=== PATIENT | female | born 1995 | race Caucasian/White ===

== ENCOUNTER 2019-02-03 13:20 | Inpatient (IN) | payer MEDICAID ==
[~2019-02-03] VITALS: Ht 154.9 cm; Wt 73.7 kg
[2019-02-03 13:51] VITALS: Ht 154.9 cm; Wt 73.7 kg
[2019-02-03 13:52] VITALS: BP 121/90; PULSE 69; RESP 18
[2019-02-03] MEDS ORDERED: LACTATED RINGER'S 1,000 ML IV SCH (13:53)
[2019-02-03] MEDS ORDERED: LIDOCAINE 1% (MPF) 30 ML INJ INJ PRN (14:00)
[2019-02-03] MEDS ORDERED: METHYLERGONOVINE 0.2 MG INJ IM PRN ×2 (14:00→23:30)
[2019-02-03] MEDS ORDERED: OXYTOCIN 30 UNITS/LR 500 ML IV SCH ×3 (14:00)
[2019-02-03] MEDS ORDERED: MISOPROSTOL 200 MCG TAB PR PRN ×2 (14:00→23:30)
[2019-02-03] MEDS ORDERED: BUTORPHANOL 2 MG INJ IV PRN (14:00)
[2019-02-03] MEDS ORDERED: OXYCODONE/ASPIRIN (4.88/325) TAB PO PRN ×3 (14:00→23:30)
[2019-02-03] MEDS ORDERED: CARBOPROST 250 MCG INJ IM PRN ×2 (14:00→23:30)
[2019-02-03] MEDS ORDERED: OXYTOCIN 30 UNITS/LR 500 ML IV PRN ×2 (14:00→23:30)
[2019-02-03] MEDS ORDERED: IBUPROFEN 600 MG TAB PO PRN (14:00)
[2019-02-03] MEDS ORDERED: MINERAL OIL LIGHT 10 ML VIAL TOP STA (19:51)
--- NOTE | 2019-02-03 22:24 | LDN ---
Date/Time of Note Date/Time of Note DATE: 02/03/19 TIME: 22:18 Delivery Summary 37w4d Weeks of Gestation vaccum assisted vaginal delivery due to profound deceleration down to 50 's at the end of second stage with MLEwith very brief use of [id number] x1 Assisted Vaginal Delivery: Vacuum Placenta Delivered: Spontaneously, Intact & Complete (marginal abruptio , sent to pathology) Meconium: none Episiotomy: Yes Indication for episiotomy profound deceleration ,vaccum used Perineal laceration: 0 Laceration repair: 00ch gut Anesthesia type: Local Estimated blood loss: 200 Sponge & Needle done & correct: Yes All needle counts correct: Yes Any foreign bodies felt in the: No Delivery Information Sex Sex: male Apgars 1 Minute: 8 5 Minute: 9 Suctioning Nose & mouth suctioned at don: Yes Delee suction performed: Yes Umbilical Cord Umbilical cord with: 3 Vessels Cord presentations: no nuchal cord Cord Blood was obtained: Yes Mother & Baby Disposition Disposition Mom & Baby to Maternity; Good: Yes Mom transferred to: Other Baby to NICU: No () BRAXTON DEJESUS MD February 03, 2019 22:24
[2019-02-03 22:45] VITALS: BP 131/69; PULSE 64; RESP 18
--- NOTE | 2019-02-03 23:06 | HP ---
Date/Time of Note Date/Time of Note DATE: 02/03/19 TIME: 22:55 OB - History Hx of Present Free Text/Dictation 23y.o at 37w4d with UC's for 10hrs prior to triage with no hx of leaking fluid. Initial VE 2-3/100/-2 CAT I tracing GBS neg admitted for expected management Chief Complaint: uc's Estimated Due Date: February 20, 2019 : 1 Para: 0 Spontaneous : 0 Therapeutic : 0 Care: Other Ultrasounds: Normal mid trimester US, Other Obstetrical Complications: None Medical Complications: None Past Family/Social History * Past Medical, Surgical, Family and Obstetric Histories reviewed from chart. Blood Type: O+ Rubella: immune RPR/VDRL: Negative GBS Status: Negative HBsAG: Negative OB Admission Exam Vital Signs Vital Signs Vital Signs Date Temp Pulse Resp B/P (MAP) Pulse Ox O2 O2 Flow FiO2 Time Delivery Rate 02/03/19 98.2 69 18 121/90 13:52 (100) Physical Exam HEENT: WNL Heart: Rhythm Normal Lungs: Clear, Equal Abdomen: WNL Extremities: Normal Reflexes: Normal Cervical Dilatation: other (2-3) Effacement: 100% Station: -2 Membranes: Intact Amniotic Fluid: Unevaluable Heart Rate: 140's Accelerations: Accelerations Present Decelerations: No Decelerations Varibility: Moderate Contractions on Admission: < 5 Minutes Apart Intensity: Moderate Last 72 hours Lab Results CBC & BMP 02/03/19 14:29 OB Assessment/Plan Reason for admission: active labor Other Assessment: IUP 37w4d Plan: Expectant Management BRAXTON DEJESUS MD February 03, 2019 23:06
[2019-02-03] MEDS ORDERED: LANOLIN HPA 1 PKT TOP PRN (23:30)
[2019-02-03] MEDS ORDERED: ZOLPIDEM 5 MG TAB PO PRN (23:30)
[2019-02-03] MEDS ORDERED: BENZOCAINE 20% 56 ML SPRAY TOP PRN (23:30)
[2019-02-03] MEDS ORDERED: WITCH HAZEL/GLYCERIN PAD PR PRN (23:30)
[2019-02-04] MEDS: IBUPROFEN 600 MG TAB PO SCH ×5 (00:41→23:39)
[2019-02-04 04:00] VITALS: BP 121/67; PULSE 69; RESP 20
[2019-02-04] MEDS: SENNA/DOCUSATE NA (8.6MG/50MG) TAB PO SCH ×2 (09:05→20:48)
[2019-02-04 09:45] VITALS: BP 93/50; PULSE 80; RESP 15
[2019-02-04 13:00] VITALS: BP 110/65; PULSE 83; RESP 16
[2019-02-04 16:35] VITALS: BP 91/48; PULSE 67; RESP 16
[2019-02-04 20:35] VITALS: BP 102/54; PULSE 87; RESP 18
--- NOTE | 2019-02-04 23:20 | PN ---
Date/Time of Note Date/Time of Note DATE: 02/04/19 TIME: 23:17 OB Subjective Subjective Subjective PPD# 1 Patient is doing well. She denies nausea, vomiting, shortness of breath, chest pain, headache. She has been ambulating without difficulty, tolerating regular diet. Pain is well controlled on current medications OB Objective Objective Objective VS - Last 72 Hours, by Label Date Temp Pulse Resp B/P (MAP) Pulse Ox O2 O2 Flow FiO2 Time Delivery Rate 02/04/19 97.9 87 18 102/54 Room Air 20:35 (70) 02/04/19 98.5 67 16 91/48 (62) 16:35 02/04/19 98.7 13:02 02/04/19 98.7 83 16 110/65 Room Air 13:00 (80) 02/04/19 98.1 80 15 93/50 (64) 09:45 02/04/19 98.0 69 20 121/67 Room Air 04:00 (85) 02/03/19 98.4 64 18 131/69 Room Air 22:45 (89) 02/03/19 98.2 69 18 121/90 13:52 (100) General: AAO X 3, comfortable, NAD, appropriate mood and affect. ABD: +BS. Soft, non-tender. Uterus 2 cm below umbilicus Flank: No CVA tenderness (B/L) LE: Mild edema. No clubbing, cyanosis, thigh or calf tenderness (B/L). Homans 'sign is negative OB Assessment/Plan Other plan: 23-year-old 1 para 1-0-0-1 s/p normal vaginal delivery at 37 weeks and 4 days. PPD#1 - AF, VSS - Contraception methods with R/B/A/FR discussed - Continue care - Discharge home tomorrow - Rx and instruction given - Follow up in 2 and 6 weeks at clinic MAYO FOREMAN February 04, 2019 23:20
--- NOTE | 2019-02-04 23:21 | DS ---
Date/Time of Note Date/Time of Note DATE: 02/04/19 TIME: 23:20 Obstetrical Discharge Record Final Diagnosis Final Diagnosis: Term delivered Other Final Diagnosis 23-year-old 1 para 1-0-0-1 s/p normal vaginal delivery at 37 weeks and 4 days. PPD#1. She is ambulating and tolerating regular diet. She is voiding without difficulty. Pain is controlled on current medication. - AF, VSS - Contraception methods with R/B/A/FR discussed - Continue care - Discharge home tomorrow - Rx and instruction given - Follow up in 2 and 6 weeks at clinic Condition on Discharge Physical Assessment Last Vitals: Vital Signs Date Temp Pulse Resp B/P (MAP) Pulse Ox O2 O2 Flow FiO2 Time Delivery Rate 02/04/19 97.9 87 18 102/54 Room Air 20:35 (70) Voiding: Yes Bowel Movement: Yes Breast: Soft, non-tender Fundus: Firm Calf Tenderness: No Patient Condition: Stable MAYO FOREMAN February 04, 2019 23:21
[2019-02-05 03:30] VITALS: BP 102/61; PULSE 77; RESP 19
[2019-02-05] MEDS: IBUPROFEN 600 MG TAB PO SCH ×3 (05:17→17:18)
[2019-02-05 08:45] VITALS: BP 98/60; RESP 17
[2019-02-05] MEDS: SENNA/DOCUSATE NA (8.6MG/50MG) TAB PO SCH (08:55)
[2019-02-05] MEDS ORDERED: DIPHTH/TET/ACEL PERTUSS (ADULT) 0.5 ML VIAL IM* ONE (09:00)
[2019-02-05 16:00] VITALS: BP 102/70; PULSE 74; RESP 16
--- NOTE | 2019-02-06 19:29 | DELSUM ---
Delivery Summary A-C Datetime Report Generated by CPN: 02/06/2019 19:28 DELIVERY PERSONNEL Account Support Analyst: Naveen Danette MATERNAL INFORMATION Delivery Anesthesia: None Medications in Delivery: LR WITH 30 UNITS PITOCIN Delivery QBL (ml): 200 Placenta Cultured: No Maternal Complications: None Other Maternal Complications: IN LABOR LABOR SUMMARY EDC: 02/20/2019 00:00 No. Babies in Womb: 1 Attempted: No Labor Anesthesia: None LABOR INFORMATION Reason for Induction: Not Applicable Onset of Labor: 02/03/2019 13:42 Complete Dilatation: 02/03/2019 19:29 Oxytocin: N/A Group B Beta Strep: Negative Antibiotics # of Doses: 0 Steroids Given: None Reason Steroids Not Administered: Not Applicable MEMBRANES Membranes Rupture Method: Artificial Rupture of Membranes: 02/03/2019 19:50 Length of Rupture (hr): 0.05 Amniotic Fluid Color: Clear Amniotic Fluid Amount: Moderate Amniotic Fluid Odor: Normal STAGES OF LABOR Stage 1 hr: 5 Stage 1 min: 47 Stage 2 hr: 0 Stage 2 min: 24 Stage 3 hr: 0 Stage 3 min: 2 Total Time in Labor hr: 6 Total Time in Labor min: 13 VAGINAL DELIVERY Episiotomy: Median Laceration Extension: N/A Laceration Type: None Laceration Repair: No Initial Vag Sponge Count: 10 Final Vag Sponge Count: 10 Initial Vag Sharps Count: 1 Final Vag Sharps Count: 3 Sponge Count Correct: Yes Sharps Count Correct: Yes Count Comment: 15 instruments 2 sutures added BABY A INFORMATION Infant Delivery Date/Time: 02/03/2019 19:53 Method of Delivery: Vaginal Born in Route : No : N/A Forceps: N/A Vacuum Extraction: Successful Shoulder Dystocia : No ASSISTED DELIVERY BABY A Indication for Assisted Delivery: Nonreassuring FHTs, vaginal bleeding Catheter Prior to Procedure: No Station Vacuum/Forcep Apply: +1 Position Vacuum/Forcep Apply: Right Occipital Anterior Vacuum Number of Pulls: 2 Vacuum Number of PopOffs: 0 Reduce Pressure btwn Ctx: Yes Vacuum Drain Cleaner: [place] Total Time Vacuum Applied: 60sec Type of Forceps: N/A Vacuum/Forceps Comment: Applied and controlled by SHOULDER DYSTOCIA BABY A Infant Delivery Date/Time: 02/03/2019 19:53 PRESENTATION/POSITION BABY A Presentation: Cephalic Cephalic Presentation: Vertex Vertex Position: Right Occipital Anterior Breech Presentation: N/A PLACENTA INFORMATION BABY A Placenta Delivery Time : 02/03/2019 19:55 Placenta Method of Delivery: Spontaneous Placenta Status: Delivered SCORES BABY A Heart Rate 1 min: >100 bpm Resp Effort 1 min: Good Cry Reflex Irritability 1 min: Cough/Sneeze/Pulls Away Muscle Tone 1 min: Active Motion Color 1 min: Blue/Pale Resuscitation Effort 1 min: Tactile Stimulation SCORE 1 MIN: 8 Heart Rate 5 min: >100 bpm Resp Effort 5 min: Good Cry Reflex Irritability 5 min: Cough/Sneeze/Pulls Away Muscle Tone 5 min: Active Motion Color 5 min: Body [place], Extremit Blue Resuscitation Effort 5 min: Tactile Stimulation SCORE 5 MIN: 9 INFANT INFORMATION BABY A Gestational Age at Delivery: 37.4 Gestational Status: Early Term- 37- 38.6 Weeks Infant Outcome : Liveborn Infant Condition : Stable Sex: Male IDENTIFICATION/MEDS BABY A ID Band Number: [id number] ID Band Location: Right Leg; Left Arm Sensor Applied: Yes Sensor Number: [id number] Sensor Location : Cord Clamp Vitamin K Given : Not Given Erythromycin Given: Not Given WEIGHT/LENGTH BABY A Infant Birthweight (gm): 3275 Weight (lb): 7 Infant Weight (oz): 4 Length (in): 19.50 Length (cm): 49.53 CORD INFORMATION BABY A No. Cord Vessels: 3 Nuchal Cord : N/A Cord Blood Taken: Yes (Annotations: Data stored by N on behalf of user) Infant Suction: Mouth; Nose ASSESSMENT BABY A Complications: Other Complications- Other: Tachysystole Physical Findings at Delivery: Molding of the Head Physical Findings- Other: Vacuum used Infant Respirations: Grunting Mass Spectrometry Manager/ALS Called : Yes Infant Care By: NICU team Transferred To: Remains with Mother
== END 2019-02-05 19:00 | disposition home or self-care (01) | DRG 807 ==
LOC: L-D 13:20 → OBT 13:20 → L-D 13:45 → OBT 13:55 → L-D 14:03 → PP1 22:42
PROVIDERS: ADMIT Obstetrics & Gynecology; ATTEND Obstetrics & Gynecology
PROC: 10D07Z6 Extraction of Products of Conception, Vacuum, Via Natural or Artificial Opening (ICD-10-PCS; principal; 2019-02-03)
PROC: 0W8NXZZ Division of Female Perineum, External Approach (ICD-10-PCS; 2019-02-03)
DX: O76 Abnormality in fetal heart rate and rhythm complicating labor and delivery (principal); Z37.0 Single live birth; Z3A.37 37 weeks gestation of pregnancy
CPT/HCPCS: 85025; 85610; 85730; 86592; 86850; 86900; 86901; 87340; 88307; 90715; 99464; G0463; J0595; J2210; J2590; J7120